=== PATIENT | male | born 1975 | race Caucasian/White ===

== ENCOUNTER 2016-12-25 00:17 | Inpatient (IN) ==
[2016-12-25] MEDS ORDERED: cefTRIAXone 1,000 MG in SODIUM CHLORIDE 0.9% 100 ML IV STA (01:23)
[2016-12-25] MEDS ORDERED: cefTRIAXone 1,000 MG VIAL ONE (01:41)
[2016-12-25 01:53] LABS: Basophils # 0.1 10*3/uL (0.0-0.2); Basophils % 0.4 % (0.0-0.8); Hematocrit 42.4 VOL% (42.0-52.0); Hemoglobin 14.9 GM/DL (14.0-18.0); Immature Granulocytes % 0.8 %; Immature Granulocytes Absolute 0.17 #; Lymphocytes # 1.2 10*3/uL (1.4-4.0); Lymphocytes % 5.8 % (21.2-54.2); Mean Corpuscular HGB Conc 35.1 GM/DL (32-36); Mean Corpuscular Hemoglobin 30 PG (27-34); Mean Corpuscular Volume 85.3 FL (87-102); Mean Platelet Volume 12.2 FL (9.6-12.0); Monocytes # 1.9 10*3/uL (0.11-0.8); Monocytes % 9.1 % (1.7-12.7); Neutrophils # 17.1 10*3/uL (1.4-7.4); Neutrophils % 83.9 % (38.7-73.9); Platelet Count 175 T/CUMM (130-400); Red Blood Count 4.97 MC/CUMM (3.8-5.5); Red Cell Distribution Width 13.4 % (9.3-17.3); White Blood Count 20.4 T/CUMM (4-12)
--- NOTE | 2016-12-25 02:04 | Emergency Department Note ---
Arrival - Arrival Chief Complaint: Extremity Problem Stated Complaint: high fever cellulitus in leg high fever ED Nursing Triage Note: C/O RLE redness/swelling and fever. Onset earlier today. +nausea. Pt has cellulitis to this lower ext frequently- was last treated for it in October. FSG at time of triage 113 Mode of Arrival: Wheelchair Time Seen by Provider: 12/25/16 01:22 - History of Present Illness HPI Narrative: pt has had fever and burning in the right leg. has a hx of cellulitis with prior hospitalization for the same. +fever and chills. no other complaint Onset (ago): day(s) Consistency: constant Severity: moderate Severity scale (1-10): 5 Allergies/Adverse Reactions: Allergies Allergy/AdvReac Type Severity Reaction Status Date / Time No Known Allergies Allergy Verified 07/29/16 19:06 Home Medications: Home Medications Medication Instructions Recorded Confirmed Type Atorvastatin [Lipitor] 20 mg PO BEDTIME 12/12/14 11/03/16 History Canagliflozin [Invokana] 100 mg PO DAILY 12/12/14 11/04/16 History Carvedilol [Coreg] 12.5 mg PO BID 12/12/14 11/04/16 History Fenofibrate [Tricor] 145 mg PO DAILY 12/12/14 11/04/16 History Glimepiride [Amaryl] 2 mg PO DAILY W/BREAKFAST 12/12/14 11/04/16 History Hydrochlorothiazide 25 mg PO DAILY 12/12/14 11/04/16 History Metformin HCl [Metformin HCl ER] 1,000 mg PO DAILY W/SUPPER 12/12/14 11/04/16 History Icosapent Ethyl [Vascepa] 2 gram PO DAILY 07/29/16 11/04/16 History Naproxen [Naprosyn Tab] 500 mg PO Q12H #30 tablet 08/03/16 11/03/16 Rx Omeprazole Magnesium [Prilosec Otc] 20 mg PO BID #28 tablet. 08/03/16 Rx Acetaminophen Tab [Tylenol Tab] 650 mg PO Q6H PRN #0 tablet 11/07/16 Rx Sulfameth/Trimeth 800-160 Tab 1 tablet PO BID #14 tablet 11/07/16 Rx [Bactrim DS Tab] Review of System - Review of System Constitutional: Present: fever Head/Ears/Nose/Throat: Absent: earache, nasal drainage Respiratory: Absent: cough, respiratory distress Cardiovascular: Absent: chest pain, palpitations, dyspnea on exertion Gastrointestinal: Present: nausea. Absent: abdominal pain Genitourinary male: Absent: dysuria Skin: Present: rash Medical,Surgical,& Family Hx - Medical History Cardio: History of: Hypertension Neurology: History of: Cerebral Palsy Endocrine: History of: Diabetes Mellitus (NIDDM) Other: History of: Miscellaneous Medical Problems (Sleep Apnea) - Family History Family History: Reports;: Family Diabetes (mother, father), Family Hypertension (mother, father) - Social History Smoking Status: Never smoker Frequency of Alcohol Use: None Type of Drug Use: None Exam Vital Signs: Vital Signs Temperature 100.6 F H 12/25/16 00:18 Pulse Rate 108 H 12/25/16 00:18 Respiratory Rate 18 12/25/16 00:18 Blood Pressure 115/88 12/25/16 00:18 O2 Sat by Pulse Oximetry 95 12/25/16 00:18 - General General appearance: alert, in no apparent distress - Head Head exam: Present: atraumatic, normocephalic - Eye Eye exam: Present: normal appearance, PERRL, EOMI - ENT ENT exam: Present: normal exam - Neck Neck exam: Present: normal inspection - Chest Chest inspection: Present: normal inspection - Respiratory Respiratory exam: Present: normal lung sounds bilaterally - Cardiovascular Cardiovascular exam: Present: regular rate, normal rhythm - Extremities Exam Extremities exam: Present: tenderness, other (rash with swelling, erythema noted. good capillary refill, pedal pulse intact) Course Course Narrative: spoke with Dr Mercedes who will admit pt Results - Labs CBC & BMP: 12/25/16 01:32 Lab Results: I have reviewed the patients labs Disposition Clinical Impression: Cellulitis Case discussed with: patient, patient's family Disposition: Still a Patient Condition: Stable Time of Disposition: 02:06
[2016-12-25 02:06] LABS: Albumin 4.2 G/DL (3.4-5.0); Bilirubin,Total 0.8 MG/DL (0.2-1.0); Calcium 9.4 MG/DL (8.5-10.1); Osmolality,Calculated 277.8 MOS/KG (273-304); Potassium 3.4 MMOL/L (3.5-5.1); Total Protein 7.3 G/DL (6.4-8.3)
[2016-12-25] MEDS ORDERED: GLUCAGON 1 MG VIAL IM PRN (02:06)
[2016-12-25] MEDS ORDERED: HYDROmorphone 2 MG/1 ML VIAL IV PRN (02:06)
[2016-12-25] MEDS ORDERED: DEXTROSE 50% 25 GM/50 ML VIAL IV PRN (02:06)
[2016-12-25] MEDS ORDERED: ONDANSETRON 4 MG/2 ML VIAL IV PRN (02:06)
[2016-12-25] MEDS ORDERED: CEFTAROLINE 600 MG in SODIUM CHLORIDE 0.9% 100 ML IV STA (02:06)
[2016-12-25] MEDS ORDERED: ACETAMINOPHEN 325 MG TABLET PO PRN (02:06)
[2016-12-25] MEDS ORDERED: CEFTAROLINE 600 MG VIAL IV ONE (02:36)
[2016-12-25 03:34] LABS: Band Neutrophils 3 % (0-10); Lymphocytes 3 % (20-55); Platelet Estimate Normal; Segmented Neutrophils 87 % (50-85); Total Cells Counted 100
[2016-12-25] MEDS: SODIUM CHLORIDE 0.9% 1,000 ML IV SCH ×3 (03:50→20:50)
[2016-12-25] MEDS ORDERED: NAPROXEN 500 MG TABLET PO PRN (06:00)
--- NOTE | 2016-12-25 07:52 | Family Practice History&Phys ---
Assessment and Plan (1) Cellulitis Status: Acute Assessment and plan: 12/17/2006: Cultures pending. Patient is on IV Teflaro. Current Visit: Yes History of Present Illness Chief complaint: Fever and leg pain History of present illness: Mr. Kaminski is a 41 year old male Patient is a 41-year-old white male who developed sudden onset of shaking chills , right leg pain and weakness that began yesterday. This is similar to his previous bout of cellulitis. Patient denies any trauma to the lower extremity. He has cellulitis of his right calf which is the same leg that was infected in October of this year. Patient states has not had any confusion, nausea or vomiting. His mother did not notice any change in his sensorium either. He does not have any respiratory symptoms whatsoever. Home Medications Medication Instructions Recorded Confirmed Type Atorvastatin [Lipitor] 20 mg PO BEDTIME 12/12/14 11/03/16 History Canagliflozin [Invokana] 100 mg PO DAILY 12/12/14 11/04/16 History Carvedilol [Coreg] 12.5 mg PO BID 12/12/14 11/04/16 History Fenofibrate [Tricor] 145 mg PO DAILY 12/12/14 11/04/16 History Glimepiride [Amaryl] 2 mg PO DAILY W/BREAKFAST 12/12/14 11/04/16 History Hydrochlorothiazide 25 mg PO DAILY 12/12/14 11/04/16 History Metformin HCl [Metformin HCl ER] 1,000 mg PO DAILY W/SUPPER 12/12/14 11/04/16 History Icosapent Ethyl [Vascepa] 2 gram PO DAILY 07/29/16 11/04/16 History Naproxen [Naprosyn Tab] 500 mg PO Q12H #30 tablet 08/03/16 11/03/16 Rx Omeprazole Magnesium [Prilosec Otc] 20 mg PO BID #28 tablet. 08/03/16 Rx Acetaminophen Tab [Tylenol Tab] 650 mg PO Q6H PRN #0 tablet 11/07/16 Rx Sulfameth/Trimeth 800-160 Tab 1 tablet PO BID #14 tablet 11/07/16 Rx [Bactrim DS Tab] Allergies Allergy/AdvReac Type Severity Reaction Status Date / Time No Known Allergies Allergy Verified 07/29/16 19:06 - Constitutional Constitutional: Present: chills, fatigue, fever(s), weakness - EENT Eyes: Absent: blurry vision, loss of vision Ears: Absent: decreased hearing Nose, mouth and throat: Absent: hoarseness, nasal congestion, sinus pressure, sore throat - Cardiovascular Cardiovascular: Absent: chest pain at rest, orthopnea, palpitations, PND - Respiratory Respiratory: Absent: cough, dyspnea, wheezing - Gastrointestinal Gastrointestinal: Absent: abdominal pain, diarrhea, nausea, vomiting - Genitourinary Genitourinary: Absent: dysuria, urinary frequency - Musculoskeletal Musculoskeletal: Present: as per HPI - Neurological Neurological: Present: focal weakness (Patient has chronic right hemiparesis). Absent: confusion, numbness, paresthesias - Psychiatric Psychiatric: Absent: anxiety, confusion - Endocrine Endocrine: Absent: fatigue, polydipsia, polyphagia - Hematologic/Lymphatic Hematologic/Lymphatic: Absent: easy bleeding, easy bruising Medical,Surgical,& Family Hx - Medical History Cardio: History of: Hypertension Neurology: History of: Cerebral Palsy Endocrine: History of: Diabetes Mellitus (NIDDM) Other: History of: Miscellaneous Medical Problems (Sleep Apnea) - Surgical History Surgical History: noncontributory - Family History Family History: Reports;: Family Diabetes (mother, father), Family Hypertension (mother, father) - Social History Smoking Status: Never smoker Frequency of Alcohol Use: None Type of Drug Use: None Exam - Constitutional Vitals: Period Temp Pulse Resp BP Sys/Martinez Pulse Ox Last 24 Hr 98.7 F-100.6 F 90-108 18-20 115-125/75-88 94-95 Exam: General: Objective patient is a well-developed white male in no acute distress. Patient is a very good history and is his usual humorus self. HEENT: Pupils equal and reactive to light. Patent nares and airway Neck: No meningismus, adenopathy, thyromegaly. There are no auscultated carotid bruits. Cardiovascular: Regular rhythm. No murmurs or gallops Chest: Clear to auscultation without rales rhonchi wheezes. Abdomen: Soft nontender to palpation No masses, rebound, guarding or tenderness. Neuro: Cranial nerves intact, patient has chronic right hemiparesis from his cerebral palsy. Dermatologic: Patient does have cellulitis of the right anterior calf. Musculoskeletal: There is no joint swelling or tenderness or deformity. Results - Labs CBC & BMP: 12/25/16 01:32 12/25/16 01:32 Lab Results: I have reviewed the past 24 hour labs
[2016-12-25] MEDS ORDERED: ICOSAPENT ETHYL 2 GM PO SCH (09:00)
[2016-12-25] MEDS ORDERED: NON-FORMULARY MEDICATION (Canagliflozin [Invokana] 100 MG) PO SCH (09:00)
[2016-12-25] MEDS: FENOFIBRATE 145 MG TABLET PO SCH (09:50)
[2016-12-25] MEDS: CARVEDILOL 12.5 MG TABLET PO SCH ×2 (09:50→20:51)
[2016-12-25] MEDS: DOCUSATE SODIUM 100 MG CAPSULE PO SCH ×3 (09:50→20:55)
[2016-12-25] MEDS: PANTOPRAZOLE 40 MG TABLET PO SCH (09:50)
[2016-12-25] MEDS: hydroCHLOROthiazide 25 MG TABLET PO SCH (09:50)
[2016-12-25] MEDS: GLIMEPIRIDE 2 MG TABLET PO SCH (09:50)
[2016-12-25] MEDS: CEFTAROLINE 600 MG in SODIUM CHLORIDE 0.9% 100 ML IV SCH (17:17)
[2016-12-25] MEDS: ATORVASTATIN 20 MG TABLET PO SCH (20:51)
[2016-12-26] MEDS: hydroCHLOROthiazide 25 MG TABLET PO SCH (08:23)
[2016-12-26] MEDS: PANTOPRAZOLE 40 MG TABLET PO SCH (08:23)
[2016-12-26] MEDS: DOCUSATE SODIUM 100 MG CAPSULE PO SCH ×2 (08:24→20:37)
[2016-12-26] MEDS: CARVEDILOL 12.5 MG TABLET PO SCH ×2 (08:24→20:37)
[2016-12-26] MEDS: FENOFIBRATE 145 MG TABLET PO SCH (08:24)
[2016-12-26] MEDS: GLIMEPIRIDE 2 MG TABLET PO SCH (08:27)
--- NOTE | 2016-12-26 08:48 | Family Practice Progress Note ---
Family Practice - PN: Subj Interval history: Patient states he is feeling much better this morning but his right leg is still sore. He thinks that the erythema has lessened somewhat. He denies any fever or chills this morning. Exam (Progress Note) - Constitutional Vitals: Period Temp Pulse Resp BP Sys/Martinez Pulse Ox Last 24 Hr 97.8 F-99.1 F 67-81 18-18 116-127/65-83 95-97 Exam: Objectively well-developed gentleman in no acute distress. His sensorium is normal. Cardiovascular: Heart rates regular without murmurs or gallops. Respiratory: Lungs clear to auscultation bilaterally. Extremities: No erythema has not extended from yesterday. It is also somewhat lessened. Still has some tenderness in the right anterior calf. Results - Labs CBC & BMP: 12/25/16 01:32 12/25/16 01:32 Lab Results: I have reviewed the past 24 hour labs Assessment and Plan (1) Cellulitis Status: Acute Assessment and plan: 12/25/2016: Cultures pending. Patient is on IV Teflaro. 12/26/2016: We will continue present IV antibiotic therapy. Current Visit: Yes
[2016-12-26 10:30] LABS: Basophils # 0.1 10*3/uL (0.0-0.2); Basophils % 0.6 % (0.0-0.8); Eosinophils # 0.2 10*3/uL (0.0-0.87); Eosinophils % 2.3 % (0.00-10.9); Hematocrit 36.9 VOL% (42.0-52.0); Immature Granulocytes % 0.1 %; Immature Granulocytes Absolute 0.01 #; Lymphocytes # 1.7 10*3/uL (1.4-4.0); Lymphocytes % 22.4 % (21.2-54.2); Mean Corpuscular HGB Conc 33.9 GM/DL (32-36); Mean Corpuscular Hemoglobin 30 PG (27-34); Mean Corpuscular Volume 88.1 FL (87-102); Mean Platelet Volume 12.2 FL (9.6-12.0); Monocytes % 12.6 % (1.7-12.7); Neutrophils # 4.8 10*3/uL (1.4-7.4); Platelet Count 151 T/CUMM (130-400); Red Blood Count 4.19 MC/CUMM (3.8-5.5); Red Cell Distribution Width 13.6 % (9.3-17.3)
[2016-12-26 10:33] LABS: Hemoglobin 12.5 GM/DL (14.0-18.0); White Blood Count 7.8 T/CUMM (4-12)
[2016-12-26] MEDS: CEFTAROLINE 600 MG in SODIUM CHLORIDE 0.9% 100 ML IV SCH ×2 (10:37→20:47)
[2016-12-26] MEDS: SODIUM CHLORIDE 0.9% 1,000 ML IV SCH ×2 (13:25→20:37)
[2016-12-26] MEDS: ATORVASTATIN 20 MG TABLET PO SCH (20:37)
[2016-12-27] MEDS: SODIUM CHLORIDE 0.9% 1,000 ML IV SCH ×2 (06:00→14:34)
--- NOTE | 2016-12-27 08:08 | Family Practice Progress Note ---
Family Practice - PN: Subj Interval history: Patient states feeling much better this morning his right lower extremity pain is improved. He states his appetite is much better as well is feeling back to his normal. His white blood count was much improved yesterday. Exam (Progress Note) - Constitutional Vitals: Period Temp Pulse Resp BP Sys/Martinez Pulse Ox Last 24 Hr 97 F-97.9 F 57-67 18-20 112-125/68-79 92-98 Exam: Objectively well-developed gentleman in no acute distress. His sensorium is normal. Cardiovascular: Heart rates regular without murmurs or gallops. Respiratory: Lungs clear to auscultation bilaterally. Extremities: Patient's erythema of the right calf is reduced markedly. He still has slight tenderness over. Results - Labs CBC & BMP: 12/26/16 09:59 12/25/16 01:32 Lab Results: I have reviewed the past 24 hour labs Assessment and Plan (1) Cellulitis Status: Acute Assessment and plan: 12/25/2016: Cultures pending. Patient is on IV Teflaro. 12/26/2016: We will continue present IV antibiotic therapy. 12/27/2016: Patient continues to improve with present therapy. Current Visit: Yes
[2016-12-27] MEDS: CARVEDILOL 12.5 MG TABLET PO SCH ×2 (09:02→21:12)
[2016-12-27] MEDS: hydroCHLOROthiazide 25 MG TABLET PO SCH (09:02)
[2016-12-27] MEDS: FENOFIBRATE 145 MG TABLET PO SCH (09:02)
[2016-12-27] MEDS: PANTOPRAZOLE 40 MG TABLET PO SCH (09:02)
[2016-12-27] MEDS: GLIMEPIRIDE 2 MG TABLET PO SCH (09:03)
[2016-12-27] MEDS: CEFTAROLINE 600 MG in SODIUM CHLORIDE 0.9% 100 ML IV SCH ×2 (09:03→20:29)
[2016-12-27] MEDS: DOCUSATE SODIUM 100 MG CAPSULE PO SCH ×2 (09:20→20:26)
[2016-12-27] MEDS: ATORVASTATIN 20 MG TABLET PO SCH (20:29)
[2016-12-28] MEDS: SODIUM CHLORIDE 0.9% 1,000 ML IV SCH (05:20)
--- NOTE | 2016-12-28 08:06 | Discharge Summary ---
Hospital Course - Hospital Course Hospital Course: Patient's 41-year-old white male presented emergency room day of admission with right leg pain, swelling, erythema and fever of 2 days origin. Patient was found to have cellulitis and was admitted for further therapy. Patient has had this in the past and has responded to Teflaro in the past. This antibiotic was begun. Blood cultures were not obtained in the emergency room. Patient improved gradually now is pain-free. There is only slight erythema to the right anterior calf. Diagnosis - Discharge Diagnosis (1) Cellulitis Status: Acute Discharge Plan - Discharge Data Disposition: Disch To Home/Self Care Condition at Discharge: Stable Discharge Diet: advance to your usual diet Activity: resume usual activities as tolerated Hygiene: no restrictions Weight Bearing at Discharge: full weight bearing Contact your physician if you experience:: fever over 101 - Discharge Medications New Sulfameth/Trimeth 800-160 Tab [Bactrim DS Tab] 1 tablet PO BID #20 tablet Acetaminophen Tab [Tylenol Tab] 650 mg PO Q6H PRN tablet PRN Reason: Fever > 100.4 Or Headache Continue Metformin HCl [Metformin HCl ER] 1,000 mg PO DAILY W/SUPPER Hydrochlorothiazide 25 mg PO DAILY Carvedilol [Coreg] 12.5 mg PO BID Canagliflozin [Invokana] 100 mg PO DAILY Glimepiride [Amaryl] 2 mg PO DAILY W/BREAKFAST Fenofibrate [Tricor] 145 mg PO DAILY Atorvastatin [Lipitor] 20 mg PO BEDTIME Icosapent Ethyl [Vascepa] 2 gram PO DAILY Naproxen [Naprosyn Tab] 500 mg PO Q12H #30 tablet Omeprazole Magnesium [Prilosec Otc] 20 mg PO BID #28 tablet.dr Discontinued Acetaminophen Tab [Tylenol Tab] 650 mg PO Q6H PRN #0 tablet PRN Reason: Fever > 100.4 Or Headache Sulfameth/Trimeth 800-160 Tab [Bactrim DS Tab] 1 tablet PO BID #14 tablet - Follow Up or Referral Follow Up: Leeroy Mercedes MD [Primary Care Provider] - 1 Month - Forms/Instructions Exam - Constitutional Vitals: Period Temp Pulse Resp BP Sys/Mratinez Pulse Ox Last 24 Hr 97.4 F-97.9 F 57-70 17-20 109-129/69-88 95-99 Exam: Objectively well-developed gentleman in no acute distress. His sensorium is normal. Cardiovascular: Heart rates regular without murmurs or gallops. Respiratory: Lungs clear to auscultation bilaterally. Extremities: Patient's erythema of the right calf is reduced markedly. The calf is nontender this morning DS: Provider Date of admission: 12/25/16 02:06 Primary care physician: Leeroy Mercedes MD Attending physician on admission: Leeroy Mercedes MD Consults: 12/25/16 02:06 Consult to Case Mgmt/Social Srvs [CONS] Routine Reason for Case Mgmt/Social Srvs: Discharge Planning Discharging clinician: Leeroy Mercedes MD Expected date of discharge: 12/28/16
[2016-12-28] MEDS: PANTOPRAZOLE 40 MG TABLET PO SCH (08:22)
[2016-12-28] MEDS: CEFTAROLINE 600 MG in SODIUM CHLORIDE 0.9% 100 ML IV SCH (08:22)
[2016-12-28] MEDS: hydroCHLOROthiazide 25 MG TABLET PO SCH (08:22)
[2016-12-28] MEDS: FENOFIBRATE 145 MG TABLET PO SCH (08:22)
[2016-12-28] MEDS: CARVEDILOL 12.5 MG TABLET PO SCH (08:22)
[2016-12-28] MEDS: DOCUSATE SODIUM 100 MG CAPSULE PO SCH (08:22)
[2016-12-28] MEDS: GLIMEPIRIDE 2 MG TABLET PO SCH (08:22)
[2016-12-28 09:43] VITALS: BP 120/89
== END 2016-12-28 11:02 | disposition home or self-care (01) | DRG 603 ==
LOC: N.ED 00:17 → N.EDINP 02:06 → N.2E 02:32
PROVIDERS: ADMIT Family Medicine; ATTEND Family Medicine

== ENCOUNTER 2021-11-08 05:54 | Observation (INO) ==
[2021-11-03 16:41] LABS: Basophils # 0.1 10*3/uL (0.0-0.2); Eosinophils # 0.4 10*3/uL (0.0-0.87); Hematocrit 40.5 VOL% (42.0-52.0); Hemoglobin 13.4 GM/DL (14.0-18.0); Immature Granulocytes % 0.5 %; Immature Granulocytes Absolute 0.04 #; Lymphocytes # 1.9 10*3/uL (1.4-4.0); Lymphocytes % 23.6 % (21.2-54.2); Mean Corpuscular HGB Conc 33.1 GM/DL (32-36); Mean Corpuscular Volume 88.8 FL (87-102); Mean Platelet Volume 11.7 FL (9.6-12.0); Monocytes % 6.9 % (1.7-12.7); Platelet Count 272 T/CUMM (130-400); Red Blood Count 4.56 MC/CUMM (3.8-5.5); Red Cell Distribution Width 12.4 % (9.3-17.3)
[2021-11-03 17:02] LABS: Calcium 9.4 MG/DL (8.5-10.1); Potassium 4.8 MMOL/L (3.5-5.1)
[2021-11-08] MEDS ORDERED: ceFAZolin 2,000 MG/50 ML DUPLEX IV ONE (06:00)
[2021-11-08] MEDS ORDERED: DIAZEPAM 5 MG TABLET PO ONE (06:48)
[2021-11-08] MEDS ORDERED: ACETAMINOPHEN 500 MG TABLET PO ONE (06:48)
[2021-11-08] MEDS ORDERED: FAMOTIDINE 20 MG TABLET PO ONE (06:48)
[2021-11-08] MEDS ORDERED: GABAPENTIN 400 MG CAPSULE PO ONE (06:48)
[2021-11-08] MEDS ORDERED: LACTATED RINGERS 1,000 ML IV SCH ×2 (07:30→10:00)
[2021-11-08] MEDS ORDERED: fentaNYL 100 MCG/2 ML VIAL ONE (09:15)
[2021-11-08] MEDS ORDERED: LIDOCAINE 2% 5 ML VIAL ONE (09:15)
[2021-11-08] MEDS ORDERED: MIDAZOLAM 2 MG/2 ML VIAL ONE (09:15)
[2021-11-08] MEDS ORDERED: propofoL 200 MG/20 ML VIAL IV ONE (09:15)
[2021-11-08] MEDS ORDERED: ROCURONIUM 50 MG/5 ML VIAL IV ONE (09:15)
[2021-11-08] MEDS ORDERED: LIDOCAINE 1% 5 ML VIAL ONE (09:23)
[2021-11-08] MEDS ORDERED: DEXAMETHASONE 4 MG/1 ML VIAL ONE (09:23)
[2021-11-08] MEDS ORDERED: ROPIVACAINE 0.5% 30 ML VIAL ONE (09:23)
[2021-11-08] MEDS ORDERED: BACITRACIN OINT 0.9 GM PACK TOP ONE (09:28)
[2021-11-08] MEDS ORDERED: ONDANSETRON 4 MG/2 ML VIAL IV PRN (09:51)
[2021-11-08] MEDS ORDERED: KETOROLAC 30 MG/1 ML VIAL IV PRN (09:51)
[2021-11-08] MEDS ORDERED: MAGNESIUM HYDROXIDE SUSP 30 ML UDCUP PO PRN (09:51)
[2021-11-08] MEDS ORDERED: diphenhydrAMINE CAP 25 MG CAPSULE PO PRN (09:51)
[2021-11-08] MEDS ORDERED: HYDROmorphone 1 MG/1 ML SYRINGE IV PRN ×2 (09:51)
[2021-11-08] MEDS ORDERED: GLUCAGON 1 MG VIAL IM PRN (09:53)
[2021-11-08] MEDS ORDERED: DEXTROSE 10% 250 ML BAG IV PRN (09:53)
[2021-11-08] MEDS ORDERED: ePHEDrine 50 MG/ML VIAL ONE (10:06)
[2021-11-08] MEDS ORDERED: SUCCINYLCHOLINE 200 MG/10 ML VIAL ONE (10:29)
[2021-11-08] MEDS ORDERED: SEVOFLURANE 1 UNIT/15 MINUTE INH ONE ×6 (10:29→10:56)
[2021-11-08] MEDS ORDERED: ONDANSETRON 4 MG/2 ML VIAL ONE (10:29)
[2021-11-08] MEDS ORDERED: LACTATED RINGERS 1,000 ML IV ONE (10:32)
[2021-11-08] MEDS ORDERED: PHENYLEPHRINE 1 MG/10 ML SYRINGE IV ONE (10:46)
[2021-11-08] MEDS ORDERED: SUGAMMADEX 200 MG/2 ML VIAL IV ONE (10:58)
[2021-11-08] MEDS: INSULIN LISPRO 100 UNIT/ML SUBCUT SCH ×3 (14:19→22:01)
[2021-11-08] MEDS: ceFAZolin 2,000 MG/50 ML DUPLEX IV SCH ×2 (16:36→23:52)
[2021-11-08] MEDS: carvediloL 12.5 MG TABLET PO SCH (16:37)
[2021-11-08] MEDS ORDERED: NON-FORMULARY MEDICATION (Omeprazole Magnesium [Prilosec Otc] 20 MG tablet,delayed release PO SCH (21:00)
[2021-11-09 04:38] LABS: Basophils # 0.1 10*3/uL (0.0-0.2); Basophils % 0.4 % (0.0-0.8); Eosinophils % 0.2 % (0.00-10.9); Hematocrit 34.7 VOL% (42.0-52.0); Hemoglobin 11.3 GM/DL (14.0-18.0); Immature Granulocytes % 0.4 %; Immature Granulocytes Absolute 0.05 #; Lymphocytes # 1.8 10*3/uL (1.4-4.0); Lymphocytes % 14.5 % (21.2-54.2); Mean Corpuscular HGB Conc 32.6 GM/DL (32-36); Mean Corpuscular Volume 89.7 FL (87-102); Mean Platelet Volume 11.4 FL (9.6-12.0); Monocytes % 8.6 % (1.7-12.7); Neutrophils % 75.9 % (38.7-73.9); Platelet Count 202 T/CUMM (130-400); Red Blood Count 3.87 MC/CUMM (3.8-5.5); Red Cell Distribution Width 12.5 % (9.3-17.3); White Blood Count 12.4 T/CUMM (4-12)
[2021-11-09 04:55] LABS: Calcium 8.3 MG/DL (8.5-10.1); Potassium 4.3 MMOL/L (3.5-5.1)
[2021-11-09 07:27] VITALS: BP 123/79
[2021-11-09] MEDS ORDERED: GLIMEPIRIDE 2 MG TABLET PO SCH (08:00)
[2021-11-09] MEDS: carvediloL 12.5 MG TABLET PO SCH (08:34)
[2021-11-09] MEDS: INSULIN LISPRO 100 UNIT/ML SUBCUT SCH (08:38)
[2021-11-09] MEDS ORDERED: hydroCHLOROthiazide 25 MG TABLET PO SCH (09:00)
[2021-11-09] MEDS ORDERED: PANTOPRAZOLE 40 MG TABLET PO SCH (09:00)
[2021-11-09] MEDS ORDERED: FENOFIBRATE 145 MG TABLET PO SCH (09:00)
[2021-11-09] MEDS ORDERED: lisinopriL 20 MG TABLET PO SCH (09:00)
[2021-11-09] MEDS ORDERED: DAPAGLIFLOZIN 10 MG TABLET PO SCH (09:00)
[2021-11-10] MEDS ORDERED: ATORVASTATIN 20 MG TABLET PO SCH (21:00)
== END 2021-11-09 12:35 | disposition home or self-care (01) ==
LOC: N.OR 05:54 → N.3E 05:54 → N.SDSINP 05:54
PROVIDERS: ADMIT Orthopaedic Surgery; ATTEND Orthopaedic Surgery